=== PATIENT | male | born 1970 | race Asian ===

== ENCOUNTER 2019-09-18 09:50 | Emergency (ER) | payer SELFPAY ==
[~2019-09-18] VITALS: Ht 154.9 cm; Wt 48.0 kg
[2019-09-18] MEDS ORDERED: cocaine 4% topical solution 4ml bottle MM ONE (10:45)
[2019-09-18] MEDS ORDERED: normal saline 1000ML IV soln IVB ONE (10:45)
[2019-09-18 11:10] LABS: LYMPHOCYTES # (AUTO) 0.6 X10'3 (1.1-4.8); MONOCYTES % (AUTO) 1.3 % (2-12)
[2019-09-18 11:12] LABS: BASOPHILS % (AUTO) 0.4 % (0-1); EOSINOPHILS % (AUTO) 0.2 % (0-6); HEMATOCRIT 35.6 % (42.0-52.0); LYMPHOCYTES % (AUTO) 27.4 % (21-51); MEAN CORPUSCULAR HGB CONC 33.8 g/dL (33.0-36.5); MEAN CORPUSCULAR VOLUME 83.1 FL (78-98); MEAN PLATELET VOLUME 8.1 FL (7.4-10.4); NEUTROPHILS # (AUTO) 1.5 X10'3 (1.8-7.7); NEUTROPHILS % (AUTO) 70.7 % (42-75); RED BLOOD COUNT 4.29 X10'6 (4.70-6.10); WHITE BLOOD COUNT 2.1 X10'3 (4.5-11.0)
[2019-09-18 11:30] LABS: ALANINE AMINOTRANSFERASE 624 U/L (12-78); ALBUMIN 2.4 G/DL (3.4-5.0); ANION GAP 8 (8-16); BILIRUBIN,TOTAL 4.3 MG/DL (0.1-1.0); BLOOD UREA NITROGEN 25 MG/DL (7-18); BUN/CREATININE RATIO 17.9 (5.4-32.0); CHLORIDE 98 MMOL/L (99-107); GLUCOSE 110 MG/DL (70-104); SODIUM 126 MMOL/L (135-145); TOTAL CARBON DIOXIDE 19.6 MMOL/L (24-32); eGFR 54 ML/MIN
[2019-09-18 11:33] LABS: CLARITY,URINE CLEAR (Clear); COLOR,URINE AMBER (Yellow); GLUCOSE, URINE NEGATIVE (Neg); KETONES,URINE NEGATIVE (Neg); LEUKOCYTE ESTERASE ,URINE NEGATIVE (Neg); NITRITES, URINE NEGATIVE (Neg); OCCULT BLOOD,URINE LARGE (Neg); PH,URINE 6.5 (4.8-8.0); PROTEIN,URINE 100 mg/dl (Neg)
[2019-09-18 11:35] LABS: ALBUMIN/GLOBULIN RATIO 0.7 (1.1-1.5); ASPARTATE AMINO TRANSFERASE 1583 U/L (10-37); POTASSIUM 3.8 MMOL/L (3.5-5.1); TOTAL PROTEIN 5.7 G/DL (6.4-8.2)
--- NOTE | 2019-09-18 11:46 | NUR ---
After the provider completed the medication administration and the nasal packing, the bleeding is under control. IV fluid bolus completed. Awaiting lab results for further orders or disposition.
[2019-09-18 11:47] LABS: ALKALINE PHOSPHATASE 1042 IU/L (46-116)
[2019-09-18 11:52] LABS: UA COLLECTION TYPE CLN CATCH MIDSTREAM
[2019-09-18 11:54] LABS: BACTERIA,URINE NONE SEEN /HPF (Neg); MUCUS STRANDS FEW /LPF (Neg); RBC,URINE 0-2 /HPF (0-2); SQUAMOUS EPITHELIAL CELL,UR NONE SEEN /LPF (FEW); WBC,URINE 0-4 /HPF (0-4)
[2019-09-18 12:13] LABS: PLATELET COUNT 41 X10'3 (140-440)
[2019-09-18 12:17] LABS: ANISOCYTOSIS 1+; MICROCYTOSIS 1+; PLATELET ESTIMATE DECREASED; TOTAL CELLS COUNTED 100
[2019-09-18 13:12] LABS: ETHANOL < 0.010 GM/DL (0.0-0.010)
[2019-09-18 13:13] LABS: PARTIAL THROMBOPLASTIN TIME 63 SECONDS (22-32)
[2019-09-18] MEDS ORDERED: piperacillin/tazo 3.375gm/50ml 50 ML IV ONE (13:40)
[2019-09-18 14:41] LABS: ACETAMINOPHEN < 2.0 UG/ML (10-30)
--- NOTE | 2019-09-18 14:44 | NUR ---
Translation phone used to review and sign the consent for blood product. Pt verbalized understanding of risks and benefits. Second IV access and second set of blood cultures are being obtained at this time.
[2019-09-18] MEDS ORDERED: ACET-2119 PO (14:47)
[2019-09-18 15:16] VITALS: BP 114/77
[2019-09-18 15:28] VITALS: BP 112/71
--- NOTE | 2019-09-18 15:30 | NUR ---
no adverse reaction from platelets post 15 minutes.
[2019-09-18 16:06] VITALS: BP 118/86
[2019-09-18 16:52] VITALS: BP 110/83
--- NOTE | 2019-09-18 16:55 | NUR ---
Attempted to phone report to Nursing staff at [facility]. Charge nurse asked freight forwarder to request our staff to attempt to call back later because they have a Code happening at this time and staff are unable to receive telephone report.
== END 2019-09-18 16:55 | disposition short-term general hospital (02) ==
LOC: ER 09:52
DX: R04.0 Epistaxis (principal); R53.1 Weakness; D61.818 Other pancytopenia; N28.9 Disorder of kidney and ureter, unspecified; E87.1 Hypo-osmolality and hyponatremia; D72.825 Bandemia; Z03.818 Encounter for observation for suspected exposure to other biological agents ruled out; Z79.899 Other long term (current) drug therapy
CPT/HCPCS: 30901; 36415; 36430; 71045; 74176; 76700; 80053; 80320; 80329; 81001; 83605; 84145; 84443; 85025; 85384; 85610; 85730; 86885; 86900; 86901; 87040; 87635; 96365; 96366; 99285; C9803; J2543; J7030; P9035